=== PATIENT | male | born 1965 | race African-American/Black ===

== ENCOUNTER 2018-06-26 22:55 | Emergency (ER) | payer OTHER ==
[~2018-06-26] VITALS: Ht 177.8 cm; Wt 87.0 kg
[2018-06-26 22:58] VITALS: BP 153/91
== END 2018-06-26 23:41 | disposition left against medical advice (07) ==
LOC: ED 23:00
DX: F32.9 Major depressive disorder, single episode, unspecified (principal); Z76.0 Encounter for issue of repeat prescription; F17.200 Nicotine dependence, unspecified, uncomplicated
CPT/HCPCS: 99283

== ENCOUNTER 2018-06-27 03:30 | Emergency (ER) | payer OTHER ==
[~2018-06-27] VITALS: Ht 175.3 cm; Wt 80.0 kg
[2018-06-27 03:32] VITALS: BP 123/75
== END 2018-06-27 04:17 | disposition home or self-care (01) ==
LOC: ED 04:09
DX: R10.84 Generalized abdominal pain (principal); Z76.5 Malingerer [conscious simulation]; F17.200 Nicotine dependence, unspecified, uncomplicated
CPT/HCPCS: 99283